=== PATIENT | male | born 1970 | race Caucasian/White ===

== ENCOUNTER → 2023-08-09 09:03 | Outpatient (CLI) | payer OTHER, MEDICAID, SELFPAY ==
[2023-08-09 10:23] LABS: Hemoglobin A1C% w Est Avg Glu 5.3 % (4.0-6.0)
[2023-08-09 10:52] LABS: Alanine Aminotransferase 39 IU/L (<50); Albumin 4.6 g/dL (3.5-5.0); Albumin Globulin Ratio 1.8 (1.0-2.8); Alkaline Phosphatase 57 U/L (38-126); Aspartate Aminotransferase 30 IU/L (17-59); BUN Creatinine Ratio 15.8 (6-22); Bilirubin Total 0.8 mg/dL (0.2-1.3); Blood Urea Nitrogen 12 mg/dL (9-20); Calcium 9.5 mg/dL (8.4-10.2); Carbon Dioxide 30 mmol/L (22-32); Chloride 104 mmol/L (98-107); Cholesterol 184 mg/dL (140-199); Estimated Glomerular Filt Rate > 60 mL/min (>60); Globulin 2.6 g/dL (1.7-4.1); Glucose 85 mg/dL (70-100); HDL Cholesterol 67 mg/dL (40-60); HEMOLYSIS < 15 (0-50); LDL Cholesterol Calculated 97 mg/dL (<100); Sodium 140 mmol/L (137-145); Total Protein 7.2 g/dL (6.3-8.2); Triglycerides 102 mg/dL (35-150)
[2023-08-09 10:53] LABS: Microalbumin Urine Random 4.5 mg/dL (0-1.6)
[2023-08-09 11:15] LABS: TSH w/ Reflex to FT4 1.27 uIU/mL (0.47-4.68)
[2023-08-09 11:19] LABS: Testosterone 281 ng/dL (71.8-623)
[2023-08-09 12:20] LABS: HIV 1 & 2 Ab/Ag 4th Gen Combo NEGATIVE (NEGATIVE); Hep C Virus Ab w/Reflex Quant NEGATIVE s/c (NEGATIVE)
== END ==
LOC: LAB 09:04
PROVIDERS: PCP Family Medicine; Referring Provider Family Medicine; Visit Provider Family Medicine
DX: I10 Essential (primary) hypertension (principal); R53.82 Chronic fatigue, unspecified; R68.82 Decreased libido; Z11.59 Encounter for screening for other viral diseases; Z11.4 Encounter for screening for human immunodeficiency virus [HIV]
CPT/HCPCS: 36415; 80053; 80061; 82043; 82570; 83036; 84403; 84443; 86803; 87389

== ENCOUNTER → 2023-09-14 12:39 | Outpatient (CLI) | payer OTHER, MEDICAID, SELFPAY ==
--- NOTE | 2023-09-14 12:41 | DI.ECHO.S_ITS ---
[facility]+ [facility] : : [address] : : [place] : : [id number] : : Phone: [phone] Echocardiogram Report + + :Name: GABRIELLE SHANNON Study Date: 09/14/2023 Height: 69 in : :Hospital ReadingLocation: Weight: 200 lb : : Gender: Male BSA: 2.1 m2 : :: 1970 Age: 53 yrs BP: 127/94 mmHg: :Reason For Study: HYPERTENSION : :Ordering Physician: ABDIRIZAK MORALESPerformed By: Chelsi Mclaughlin : :Referring: ABDIRIZAK MORALES : + + Interpretation Summary The left ventricle is normal in size and wall thickness. Left ventricular systolic function appears normal without focal wall motion abnormalities. The ejection fraction is estimated to be 55-60%. Diastolic parameters suggest probable normal left ventricular diastolic function and normal filling pressures. The right ventricle is borderline dilated. The right ventricular systolic function is normal. The left atrial size is normal. There is no significant valvular heart disease. The aortic root is normal size. Procedure: A two-dimensional transthoracic echocardiogram with color flow and Doppler was performed. The study quality was technically adequate. There is no prior echocardiogram noted for this patient. The patient was in sinus rhythm with heart rates between 60-67 bpm during the exam. Left Ventricle: The left ventricle is normal in size and wall thickness. Left ventricular systolic function appears normal without focal wall motion abnormalities. The ejection fraction is estimated to be 55-60%. Diastolic parameters suggest probable normal left ventricular diastolic function and normal filling pressures. Right Ventricle: The right ventricle is borderline dilated. The right ventricular systolic function is normal. Atria: The left atrial size is normal. Right atrial size is normal. There is no Doppler evidence for an interatrial shunt. Mitral Valve: The mitral valve is normal in structure and function. There is trace mitral regurgitation. Aortic Valve: The aortic valve is trileaflet. The aortic valve opens well. There is no aortic valve stenosis. No aortic regurgitation is present. Tricuspid Valve: The tricuspid valve is normal in structure and function. There is trace tricuspid regurgitation. Pulmonic Valve: The pulmonic valve leaflets are thin and pliable; valve motion is normal. There is trace pulmonic regurgitation. There is no significant valvular heart disease. Great Vessels: The aortic root is normal size. The dimensions of the ascending aorta are normal. The IVC is of normal diameter and collapses greater than 50% with a sniff. This suggests a low right atrial pressure of 3 mm Hg. Pericardium/ Pleura There is no pericardial effusion. There is no pleural effusion. MMode/2D Measurements & Calculations LVIDd: 5.6 cm LVOT diam: 2.1 cm LVIDs: 3.7 cm Ao root diam: 3.2 cm FS: 34.1 % asc Aorta Diam: 3.1 cm IVSd: 1.1 cm LVPWd: 0.94 cm LV sibley. diameter/BSA (cm/m^2): 2.7 LV sys. diameter/BSA (cm/m^2): 1.8 LA A2 area: 18.2 cm2 RA long axis: 4.8 cm LA A4 area: 16.8 cm2 RA area: 14.4 cm2 LA length (vol): 4.7 cm RA vol: 37.2 ml LA vol: 54.7 ml RA : 18.0 ml/m2 LA vol index: 26.5 ml/m2 IVC diam: 1.4 cm RVD1 (basal): 4.2 cm RVD2 (mid): 3.5 cm TAPSE: 1.9 cm Doppler Measurements & Calculations Ao V2 max: 126.2 cm/sec LVOT Max Hebert: 76.2 cm/sec Ao V2 mean: 87.8 cm/sec LV V1 max P.3 mmHg Ao max P.4 mmHg LV V1 VTI: 14.1 cm Ao mean P.5 mmHg ALINA(I,D): 2.1 cm2 Ao V2 VTI: 24.4 cm ALINA(V,D): 2.2 cm2 sev ratio: 0.58 ALINA indexed to BSA (cm^2/m^2): 1.0 MV E max hebert: 62.3 cm/sec PA V2 max: 83.9 cm/sec MV A max hebert: 47.5 cm/sec PA V2 mean: 58.0 cm/sec MV E/A: 1.3 PA mean P.5 mmHg Med Peak E' Hebert: 5.4 cm/sec PA pr(Accel): 31.0 mmHg E/E' med: 11.5 Lat Peak E' Hebert: 7.4 cm/sec E/E' lat: 8.4 E/e' average: 10.0 MV dec time: 0.24 sec SV(LVOT): 50.6 ml Reading Physician:[id number] PM
== END ==
LOC: ECHO 12:41
PROVIDERS: PCP Family Medicine; Referring Provider Family Medicine; Visit Provider Family Medicine
DX: I10 Essential (primary) hypertension (principal); R53.82 Chronic fatigue, unspecified
CPT/HCPCS: 93306

== ENCOUNTER → 2024-10-18 08:38 | Outpatient (CLI) | payer OTHER, SELFPAY ==
[2024-10-18 08:59] LABS: Hematocrit 44.5 % (41-53); Hemoglobin 15.9 g/dL (13.5-17.5); Mean Corpuscular HGB Conc 35.6 % (30-36); Mean Corpuscular Hemoglobin 33.2 PG (26-34); Mean Corpuscular Volume 93.2 fL (80-100); Platelet Count 344 X10^3/uL (150-400)
[2024-10-18 09:12] LABS: Hemoglobin A1C% w Est Avg Glu 5.6 % (4.0-6.0)
[2024-10-18 09:26] LABS: Alanine Aminotransferase 40 IU/L (<50); Albumin 4.8 g/dL (3.5-5.0); Albumin Globulin Ratio 1.7 (1.0-2.8); Alkaline Phosphatase 54 U/L (38-126); Blood Urea Nitrogen 13 mg/dL (9-20); Calcium 9.7 mg/dL (8.4-10.2); Carbon Dioxide 26 mmol/L (22-32); Chloride 101 mmol/L (98-107); Cholesterol 224 mg/dL (140-199); Estimated Glomerular Filt Rate > 60 mL/min (>60); Globulin 2.9 g/dL (1.7-4.1); Glucose 105 mg/dL (70-99); HDL Cholesterol 72 mg/dL (40-60); HEMOLYSIS < 15 (0-50); Potassium 4.5 mmol/L (3.4-5.1); Sodium 138 mmol/L (137-145); Total Protein 7.7 g/dL (6.3-8.2); Triglycerides 139 mg/dL (35-150)
[2024-10-18 09:54] LABS: TSH w/ Reflex to FT4 1.76 uIU/mL (0.47-4.68)
== END ==
PROVIDERS: PCP Family Medicine; Referring Provider Family Medicine; Visit Provider Family Medicine
DX: I10 Essential (primary) hypertension (principal); F10.90 Alcohol use, unspecified, uncomplicated; R80.9 Proteinuria, unspecified; B35.3 Tinea pedis; F41.1 Generalized anxiety disorder; Z12.11 Encounter for screening for malignant neoplasm of colon
CPT/HCPCS: 36415; 80053; 80061; 83036; 84443; 85027